=== PATIENT | female | born 1950 | race Caucasian/White ===

== ENCOUNTER → 2018-09-29 | Outpatient (CLI) | payer MEDICARE, OTHER ==
[~2018-09-29] MED LIST: HYDACE5 PO
== END | disposition home or self-care (01) ==
LOC: PLD 13:49 → LAB SHORT 13:49
DX: D22.62 Melanocytic nevi of left upper limb, including shoulder (principal)
CPT/HCPCS: 88305

== ENCOUNTER 2020-01-28 12:36 | Day surgery (SDC) | payer MEDICARE, OTHER ==
[~2020-01-28] VITALS: Ht 165.1 cm; Wt 85.2 kg
[~2020-01-28 12:36] MED LIST changes: +Aspir 8181 MG PO; +FLONASE SENSIM5.9 ML; +LOSA50 PO; +ROSU10TA PO
[2020-01-28] MEDS ORDERED: OSTERA TABLET1 EACH (13:09)
[2020-01-28] MEDS ORDERED: THERA1 EACH (13:09)
--- NOTE | 2020-01-28 13:11 | NUR ---
01/28/20 1311 Nakita Ross 1 TRY HAND RIGHT BLEW 2 TRY HAND RIGHT NO FLASH
--- NOTE | 2020-01-28 15:02 | NUR ---
01/28/20 1502 Georgie Frias 1421 PT. RETCHING, SUCTIONED FOR SMALL AMT. YELLOW SECRETIONS, JAW THRUST PERFORMED & 4MG IV ZOFRAN GIVEN PER DR. ORDER. SATS DOWN TO 84% ON 3L/NC O2 UP TO 5L/NC WITH SATS ABOVE 90%. JAW THRUST PERFORMED NEEDED. 1442 PT. RETCHING AGAIN, 4MG IV ZOFRAN GIVEN PER DR. ORDER. PT. VOMITED MODERATE AMT. YELLOW SECRETIONS WHICH WERE ORALLY SUCTIONED & JAW THRUST PERFORMED. PT. ALSO WITH SOME BRADYCARDIA EPISODES ON WAY INTO COLON. [place] AWARE. WOULD STOP PUSHING SCOPE. HR DOWN IN 40'A & THEN BACK UP TO 70'S.1502 PT. DENIES SORE THROAT OR PAIN OR NAUSEA.
--- NOTE | 2020-01-28 15:47 | NUR ---
01/28/20 1547 Georgie Frias PT. DENIES PAIN, SORE THROAT OR NAUSAEA.
== END 2020-01-28 15:35 | disposition home or self-care (01) ==
LOC: ORSCSDS 12:36
PROVIDERS: Student in an Organized Health Care Education/Training Program
PROC: 0DBH8ZX Excision of Cecum, Via Natural or Artificial Opening Endoscopic, Diagnostic (ICD-10-PCS; principal; 2020-01-28 14:00)
PROC: 0DBN8ZX Excision of Sigmoid Colon, Via Natural or Artificial Opening Endoscopic, Diagnostic (ICD-10-PCS; principal; 2020-01-28 14:00)
PROC: 0DBL8ZX Excision of Transverse Colon, Via Natural or Artificial Opening Endoscopic, Diagnostic (ICD-10-PCS; principal; 2020-01-28 14:00)
DX: Z12.11 Encounter for screening for malignant neoplasm of colon (principal); D12.3 Benign neoplasm of transverse colon; D12.0 Benign neoplasm of cecum; D12.5 Benign neoplasm of sigmoid colon; K57.30 Diverticulosis of large intestine without perforation or abscess without bleeding; I10 Essential (primary) hypertension; Z79.899 Other long term (current) drug therapy; Z79.82 Long term (current) use of aspirin
CPT/HCPCS: 88305; J2405; J2704; J7120

== ENCOUNTER → 2020-12-21 | Outpatient (CLI) | payer MEDICARE, OTHER ==
[~2020-12-21] MED LIST changes: +OSTERA TABLET1 EACH; +THERA1 EACH
== END | disposition home or self-care (01) ==
LOC: LAB 11:37 → LAB SHORT 11:37
DX: D48.5 Neoplasm of uncertain behavior of skin (principal)
CPT/HCPCS: 88305

== ENCOUNTER → 2024-11-02 | Outpatient (CLI) | payer MEDICARE, OTHER | END | disposition home or self-care (01) | LOC: LAB SHORT 07:32 → LAB 07:32 | DX: B35.1 Tinea unguium (principal); L60.2 Onychogryphosis | CPT/HCPCS: 88305; 88312 ==